=== PATIENT | female | born 1985 | race Two or more races ===

== ENCOUNTER 2024-06-16 12:37 | Emergency (ER) | payer SELFPAY ==
[~2024-06-16] VITALS: Ht 160 cm; Wt 49.9 kg
[2024-06-16 13:00] VITALS: PULSE 84; RESP 16; TEMP 98.7; O2SAT 100
== END 2024-06-16 18:01 | disposition home or self-care (01) ==
LOC: ER 12:51
DX: O02.1 Missed abortion (principal)
CPT/HCPCS: 36415; 76817; 84702; 99284